=== PATIENT | male | born 1995 | race African-American/Black ===

== ENCOUNTER 2017-05-02 22:02 | Emergency (ER) | payer MEDICAID, OTHER ==
[~2017-05-02] VITALS: Ht 157.5 cm; Wt 65.0 kg
[~2017-05-02 22:02] MED LIST: NELF250 PO; OSEL60SU PO; [UNRECOGNIZED DRUG - CODE] PO
[2017-05-02 22:08] VITALS: BP 127/76; PULSE 121; RESP 18; TEMP 101.3; O2SAT 96
[2017-05-02] MEDS ORDERED: SODIUM CHLORIDE 0.9% FLUSH 10 ML FLUSH IVF PRN (22:30)
[2017-05-02] MEDS ORDERED: SODIUM CHLOR 0.9% 1000 ML INJ 1,000 ML IV ONE (22:30)
[2017-05-02] MEDS ORDERED: IBUPROFEN 800 MG TAB PO ONE (22:30)
--- NOTE | 2017-05-02 22:42 | PD ---
HPI Chief Complaint: ENT Complaint Time Seen by Provider: 22:16 Travel History International Travel<30 days: No Contact w/Intl Traveler<30days: No Traveled to known affect area: No History of Present Illness HPI Patient is a 22-year-old male presenting to emergency department for evaluation of cold and flulike symptoms. Patient states that his whole body aches and he has a headache, he reports coughing and nasal congestion. His symptoms started yesterday, he took 1 acetaminophen tablet 1 hour prior to arrival in the emergency department. He denies any abdominal pain, nausea, vomiting or chest pain. Patient denies any significant past medical history. Symptom onset was gradual, symptoms are moderate. There are no alleviating factors. PFSH Past Medical History Medical History: Denies Significant Hx Autoimmune Disease: Yes (HIV POSITIVE) Blood Disorders: No Anxiety: No Depression: No Cardiovascular Problems: No Developmental Delay: No Diminished Hearing: No Genitourinary: No Musculoskeletal: No Neurologic: No Psychiatric: No Respiratory: No Immunizations Current: Yes Sickle Cell Disease: No Tetanus Vaccination: < 5 Years Influenza Vaccination: Yes Past Surgical History Surgical History: No Previous Surgery Other Surgery: No Social History Alcohol Use: No Tobacco Use: No Substance Use: No Allergies-Medications (Allergen,Severity, Reaction): Coded Allergies: No Known Allergies (Verified Adverse Reaction, Unknown, 05/02/17) Reported Meds & Prescriptions Reported Meds & Active Scripts Active No Active Prescriptions or Reported Medications Review of Systems Except as stated in HPI: all other systems reviewed are Neg General / Constitutional: Positive: Fever, Chills HENT: Positive: Headaches, Congestion Cardiovascular: No: Chest Pain or Discomfort Respiratory: Positive: Cough, No: Shortness of Breath Gastrointestinal: No: Nausea, Vomiting, Abdominal Pain Musculoskeletal: Positive: Myalgias Physical Exam Narrative GENERAL: Well-developed, well-nourished, acutely ill-appearing male. Presenting in no acute distress. SKIN: Warm and dry. HEAD: Atraumatic. Normocephalic. EYES: Pupils equal and round. No scleral icterus. No injection or drainage. ENT: No nasal bleeding or discharge. Mucous membranes pink and moist. NECK: Trachea midline. No JVD. CARDIOVASCULAR: Tachycardic. RESPIRATORY: No accessory muscle use. Clear to auscultation. Breath sounds equal bilaterally. GASTROINTESTINAL: Abdomen soft, non-tender, nondistended. Hepatic and splenic margins not palpable. MUSCULOSKELETAL: Extremities without clubbing, cyanosis, or edema. No obvious deformities. NEUROLOGICAL: Awake and alert. No obvious cranial nerve deficits. Motor grossly within normal limits. Five out of 5 muscle strength in the arms and legs. Normal speech. PSYCHIATRIC: Appropriate mood and affect; insight and judgment normal. Data Data Last Documented VS Vital Signs Date Time Temp Pulse Resp B/P (MAP) Pulse Ox O2 Delivery O2 Flow Rate FiO2 05/02/17 23:01 99.8 100 16 96 Room Air 05/02/17 22:08 127/76 (93) Orders Orders Group A Rapid Strep Screen (05/02/17 22:20) Influenzae A/B Antigen (05/02/17 22:20) Iv Access Insert/Monitor (05/02/17 22:20) Oximetry (05/02/17 22:20) Sodium Chloride 0.9% Flush (Ns Flush) (05/02/17 22:30) Ibuprofen (Motrin) (05/02/17 22:30) Sodium Chlor 0.9% 1000 Ml Inj (Ns 1000 M (05/02/17 22:30) Strep Culture (Group A) (05/02/17 22:25) MDM Medical Decision Making Medical Screen Exam Complete: Yes Emergency Medical Condition: Yes Interpretation(s) Vital Signs Date Time Temp Pulse Resp B/P (MAP) Pulse Ox O2 Delivery O2 Flow Rate FiO2 05/02/17 23:01 99.8 100 16 96 Room Air 05/02/17 22:08 101.3 121 18 127/76 (93) 96 Vital Signs Date Time Temp Pulse Resp B/P (MAP) Pulse Ox O2 Delivery O2 Flow Rate FiO2 05/02/17 22:08 101.3 121 18 127/76 (93) 96 Differential Diagnosis Influenza versus strep pharyngitis versus viral syndrome versus other Narrative Course Patient is a 22-year-old male presenting with 1 day of cold and flulike symptoms. Patient is tachycardic and febrile on arrival. IV fluids, ibuprofen , influenza and strep pending. Patient is negative for influenza or strep. After administration of ibuprofen and 1 L of IV fluids patient's temperature trended down. He reports feeling better. Patient is encouraged to continue symptom management his symptoms are likely viral in nature. He was encouraged to maintain adequate fluid intake. He was encouraged to return to emergency department for any new or worsening symptoms. Patient and mother verbalized understanding of instructions. Patient stable for discharge. Diagnosis Primary Impression: Viral syndrome Referrals: Primary Care Physician Patient Instructions: General Instructions, Viral Syndrome (DC) Additional Instructions: Rest, maintain adequate fluid intake Take ibuprofen as needed and as directed for fevers, body aches and pain. Return to emergency department for any new or worsening symptoms Follow-up with your primary doctor Med/Other Pt SpecificInfo: Prescription(s) given Scripts Ibuprofen (Ibuprofen) 800 Mg Tab 800 MG PO Q6HR Y for PAIN, #40 TAB 0 Refills Prov: Linnette Duff 05/02/17 Disposition: 01 DISCHARGE HOME Condition: Stable Linnette Duff May 02, 2017 22:42
[2017-05-02 23:01] VITALS: PULSE 100; RESP 16; TEMP 99.8; O2SAT 96
[2017-05-02] MEDS ORDERED: IBUP1TAB7 PO (23:11)
== END 2017-05-02 23:21 | disposition home or self-care (01) ==
LOC: NEPD 22:02
DX: B34.9 Viral infection, unspecified (principal); Z21 Asymptomatic human immunodeficiency virus [HIV] infection status
CPT/HCPCS: 87081; 87804; 87880; 99283; J7030

== ENCOUNTER 2017-05-05 09:20 | Emergency (ER) | payer MEDICAID ==
[~2017-05-05] VITALS: Ht 157.5 cm; Wt 68.0 kg
[~2017-05-05 09:20] MED LIST changes: +IBUP1TAB7 PO; -NELF250 PO; -OSEL60SU PO; -[UNRECOGNIZED DRUG - CODE] PO
[2017-05-05 09:30] VITALS: BP 130/75; PULSE 85; RESP 16; O2SAT 99
--- NOTE | 2017-05-05 09:52 | PD ---
HPI Chief Complaint: Cold / Flu Symptoms Time Seen by Provider: 09:39 Travel History International Travel<30 days: No Contact w/Intl Traveler<30days: No Traveled to known affect area: No History of Present Illness HPI Patient comes in complaining of sore throat, subjective fever, diffuse body aches, and chills. Patient was seen here approximately 2 or 3 days ago and had a negative flu test, and strep test. Patient does not have any alleviating or aggravating factors. Patient denies any associated factors such as headache, chest pain, back pain, abdominal pain, nausea, vomiting, diarrhea, rash. No known drug allergy Patient has a history of HIV currently on GENVOYA, has an undetectable viral load and has a normal CD4 count though he cannot recall specifically the number. PFSH Past Medical History Autoimmune Disease: Yes (HIV POSITIVE) Blood Disorders: No Anxiety: No Depression: No Cardiovascular Problems: No Developmental Delay: No Diminished Hearing: No Genitourinary: No Musculoskeletal: No Neurologic: No Psychiatric: No Respiratory: No Immunizations Current: Yes Sickle Cell Disease: No Past Surgical History Other Surgery: No Social History Alcohol Use: No Tobacco Use: No Substance Use: No Allergies-Medications (Allergen,Severity, Reaction): Coded Allergies: No Known Allergies (Verified Adverse Reaction, Unknown, 05/02/17) Reported Meds & Prescriptions Reported Meds & Active Scripts Active Ibuprofen 800 Mg Tab 800 Mg PO Q6HR PRN Review of Systems General / Constitutional: No: Fever Eyes: No: Visual changes HENT: Positive: Sore Throat Cardiovascular: No: Chest Pain or Discomfort Respiratory: No: Shortness of Breath Gastrointestinal: No: Abdominal Pain Genitourinary: No: Dysuria Musculoskeletal: No: Pain Skin: No Rash Neurologic: No: Weakness Psychiatric: No: Depression Endocrine: No: Polydipsia Hematologic/Lymphatic: No: Easy Bruising Physical Exam Narrative GENERAL: SKIN: Warm and dry. HEAD: Atraumatic. Normocephalic. EYES: Pupils equal and round. No scleral icterus. No injection or drainage. ENT: No nasal bleeding or discharge. Mucous membranes pink and moist. Diffuse erythema to oropharynx, edema to oropharynx, also present in her anterior cervical lymph node NECK: Trachea midline. No JVD. CARDIOVASCULAR: Regular rate and rhythm. RESPIRATORY: No accessory muscle use. Clear to auscultation. Breath sounds equal bilaterally. GASTROINTESTINAL: Abdomen soft, non-tender, nondistended. MUSCULOSKELETAL: Extremities without clubbing, cyanosis, or edema. No obvious deformities. NEUROLOGICAL: Awake and alert. No obvious cranial nerve deficits. Motor grossly within normal limits. Five out of 5 muscle strength in the arms and legs. Normal speech. PSYCHIATRIC: Appropriate mood and affect; insight and judgment normal. Data Data Last Documented VS Vital Signs Date Time Temp Pulse Resp B/P (MAP) Pulse Ox O2 Delivery O2 Flow Rate FiO2 05/05/17 09:30 85 16 130/75 (93) 99 MDM Medical Decision Making Medical Screen Exam Complete: Yes Emergency Medical Condition: Yes Medical Record Reviewed: Yes Differential Diagnosis Pharyngitis viral versus bacterial Narrative Course Patient was recently seen had a negative flu as well as strep test. Strep culture is not back yet however clinically the oropharynx is very edematous and erythematous, so I believe that this is a bacterial source Diagnosis Primary Impression: Pharyngitis Disposition: 01 DISCHARGE HOME Condition: Stable Mejia Malave MD May 05, 2017 09:52
[2017-05-05] MEDS ORDERED: CIPROFLOXACIN 500 MG TAB PO ONE (10:00)
[2017-05-05] MEDS ORDERED: PENICILLIN G BENZATHINE 1,200,000 UNITS/2 ML SYRINGE IM ONE (10:00)
[2017-05-05] MEDS ORDERED: KETOROLAC TROMETHAMINE 60 MG/2 ML (IM) VIAL IM ONE (10:00)
[2017-05-05 11:33] VITALS: BP 130/78; PULSE 92; RESP 18; O2SAT 100
== END 2017-05-05 12:06 | disposition home or self-care (01) ==
LOC: NEPC 09:20
DX: J02.9 Acute pharyngitis, unspecified (principal); B20 Human immunodeficiency virus [HIV] disease
CPT/HCPCS: 96372; 99283; J0561; J1885